=== PATIENT | male | born 1985 | race Caucasian/White ===

== ENCOUNTER 2020-02-18 09:30 | Outpatient (CLI) | payer BC, SELFPAY ==
[2020-02-21 18:55] LABS: COVID-19 RT-PCR Result NEGATIVE (Negative)
== END 2020-02-18 09:50 ==
PROVIDERS: PCP Nurse Practitioner Family; Visit Provider Nurse Practitioner Family
DX: Z11.59 Encounter for screening for other viral diseases (principal)
CPT/HCPCS: U0003

== ENCOUNTER 2020-02-24 08:38 | Outpatient (CLI) | payer BC, SELFPAY ==
[2020-02-25 19:43] LABS: COVID-19 RT-PCR UVMMC Result Positive (Negative)
== END 2020-02-24 08:58 ==
PROVIDERS: PCP Nurse Practitioner Family; Visit Provider Nurse Practitioner Family
DX: Z20.828 Contact with and (suspected) exposure to other viral communicable diseases (principal)
CPT/HCPCS: U0003

== ENCOUNTER 2022-04-05 03:16 | Outpatient (CLI) | payer BC, SELFPAY ==
[2022-04-05 11:14] LABS: Calculated LDL 173 mg/dL (<100); Cholesterol 275 mg/dL (<200); HDL Cholesterol 77 mg/dL (40-60); Triglyceride 126 mg/dL (<150)
[2022-04-05 11:26] LABS: Hemoglobin A1C 5.2 % (<5.7)
== END 2022-04-05 03:17 | disposition home or self-care (01) ==
LOC: LBO 03:16
PROVIDERS: PCP Nurse Practitioner Family; Visit Provider Nurse Practitioner Family
DX: Z13.1 Encounter for screening for diabetes mellitus (principal); Z13.220 Encounter for screening for lipoid disorders
CPT/HCPCS: 36415; 80061; 83036

== ENCOUNTER → 2023-01-17 00:42 | Outpatient (CLI) | payer BC, SELFPAY ==
--- NOTE | 2023-01-17 07:00 | DI.US_ITS ---
Exam(s) US HERNIA EXAM: US HERNIA CLINICAL HISTORY: intermittent RLQ abd pain, possible hernia. TECHNIQUE: Ultrasound was performed using standard protocol over area of concern in the right lower quadrant.. COMPARISON: US ABDOMEN ULTRASOUND (P) from 11/05/2015 FINDINGS: Dedicated ultrasound examination of the superficial area of concern in the right lower quadrant, look ing for abdominal wall defect-hernia. Images without and with Valsalva maneuver were obtained Submitted images do not reveal an abdominal wall defect/hernia in the area of clinical concern. IMPRESSION: No evidence of abdominal wall defect to suggest abdominal wall hernia in the area scanned. In additio n, there is no abnormal muscular nor intermuscular mass nor fluid collection in the abdominal wall at this level. DATA REPOSITORY:
--- NOTE | 2023-01-17 07:00 | DI.RAD_ITS ---
Exam(s) XR LUMBAR SPINE COMPLETE EXAM: XR LUMBAR SPINE COMPLETE CLINICAL HISTORY: intermittent right low back pain,M54.50. TECHNIQUE: 2D digital imaging was performed. COMPARISON: No exams were available for comparison FINDINGS: Five views There is no evidence of fracture, listhesis, nor pars defects. There is moderate-advanced disc space narrowing at L5-S1 level. All the other disc spaces exhibit no rmal height. Facet joints at each level appear unremarkable including L5-S1. Bone density appears n ormal. No osseous lesions. No scoliosis. SI joints appear unremarkable. IMPRESSION: Moderate disc space narrowing at L5-S1 level. If clinically indicated further study with MRI can be performed to determine if there is herniated disc material at this or other levels. DATA REPOSITORY: RADIATION DOSE DELIVERED:
== END ==
PROVIDERS: PCP Nurse Practitioner Family; Visit Provider Nurse Practitioner Family
DX: M51.36 Other intervertebral disc degeneration, lumbar region (principal)
CPT/HCPCS: 76857; 72110

== ENCOUNTER → 2023-02-17 00:50 | Outpatient (CLI) | payer BC, SELFPAY ==
--- NOTE | 2023-02-17 06:30 | DI.MRI_ITS ---
Exam(s) MR LUMBAR SPINE WO EXAM: MR LUMBAR SPINE WO CLINICAL HISTORY: acute rt LOW back pain,m54.50. TECHNIQUE: Multiplanar multisequence MRI of the Lumbar spine was performed. COMPARISON: CR XR LUMBAR SPINE COMPLETE from 01/17/2023 FINDINGS: Conus medullaris is at normal level. There is no evidence of conus mass nor subjacent clumping of in trathecal nerve roots to suggest arachnoiditis. The distal thecal sac appears unremarkable.There is no evidence of Tarlov intrasacral cysts nor other significant findings within the sacral canal. No e vidence of tethered spinal cord. However, there is syringomyelia noted in the distal spinal cord seen within field of view of this michael dy at and below T11 level to this most probably continues above this level. Bones:No fractures. There are Modic type 2 sub endplate fatty marrow changes at L5-S1 level. There is also a small benign-appearing bone lesion the posterior aspect of L2 vertebral body which may be a small hemangioma. This does not have the appearance of an aggressive bone lesion. With respect to the individual levels... T12-L1: Unremarkable L1-2: Normal disc height and signal. No disc herniation nor central canal stenosis.No foraminal steno sis L2-3: Normal disc height. No disc herniation nor central canal stenosis.No foraminal stenosis.No face t arthropathy. L3-4: Normal disc height. No disc herniation or central canal stenosis.No foraminal stenosis.No face t arthropathy. L4-5: Normal disc height and signal. However, there is a radial tear in the left side of the annulus within the exiting left neural foramen. However, there is no significant disc herniation at this le derrick at this time. Central canal dimensions are normal. There is no foraminal stenosis on either winston e at this level. No facet arthropathy. L5-S1: This level exhibits chronic disc space narrowing, anterior osseous lipping, and Modic type 2 s ub endplate fatty marrow changes. There is posterior annular bulging with a superimposed more promin ent bulging posterolateral left as well as some posterior bony ridging. This contacts the anterior l eft side of the thecal sac. There is no prominent focal disc protrusion at this level. Central nathan l dimensions are lower normal. There is minimal foraminal stenosis bilaterally at this level which i s related to the disc height loss. There is no prominent foraminal stenosis. The exiting nerve root s retain normal round configuration with surrounding fat signal and do not appear significantly compr essed. Soft tissues: paraspinal soft tissues appear unremarkable. IMPRESSION: 1. Firstly, there is syringomyelia evident in the visualized lower aspect of the spinal cord with di latation of the central canal to diameter 1.5 mm. This study extends up to T11 level and this dilata tion of the central canal is seen from the conus medullaris to this level and most probably continues above this level and therefore MRI scan of the thoracic and cervical spinal levels are recommended. 2. Chronic disc space narrowing evident at L5-S level with asymmetric posterolateral left annular bul ging which contacts the thecal sac. Central canal dimensions are lower normal. No significant saige inal stenosis. 3. Left-sided radial annular tear at L4-5 at the level of the exiting left neural foramen. However, there is no disc protrusion at this level evident nor elsewhere at this level.. No central canal lani nosis nor foraminal stenosis at this level. DATA REPOSITORY:
== END ==
PROVIDERS: PCP Nurse Practitioner Family; Visit Provider Nurse Practitioner Family
DX: M51.36 Other intervertebral disc degeneration, lumbar region (principal); G95.0 Syringomyelia and syringobulbia
CPT/HCPCS: 72148

== ENCOUNTER → 2023-04-05 01:09 | Outpatient (CLI) | payer BC, SELFPAY ==
--- NOTE | 2023-04-05 07:30 | DI.MRI_ITS ---
Exam(s) MR THORACIC SPINE WO EXAM: MR THORACIC SPINE WO CLINICAL HISTORY: syringomyelia,g95.0. TECHNIQUE: Multiplanar multisequence MRI of the Thoracic spine was performed. COMPARISON: MR MR LUMBAR SPINE WO from 02/17/2023 MR MR CERVICAL SPINE WO from 04/05/2023 FINDINGS: Bones: The vertebral body heights are well maintained. Minimal endplate osteophytes. Alignment is satisfactory. The marrow signal characteristics are unremarkable. Cord: The thoracic cord is normal size and signal intensity. A thin syrinx becomes visible at the T4 level extending down to the L1 level. The diameter is greatest at the T12 level where it measures 1 .5 millimeters in diameter. Soft tissues: Normal. Discs: No evidence of disc herniation or significant disc bulging. No neural foraminal narrowing or central canal stenosis. IMPRESSION: Thin syrinx, maximally 1.5 millimeters in diameter, extending from T4 through T12. Cord signal is ot herwise normal. No evidence of mass. DATA REPOSITORY:
--- NOTE | 2023-04-05 07:30 | DI.MRI_ITS ---
Exam(s) MR CERVICAL SPINE WO EXAM: MR CERVICAL SPINE WO CLINICAL HISTORY: syringomyelia,g95.0 TECHNIQUE: Multiplanar multisequence MRI of the cervical spine was performed without intravenous con trast. COMPARISON: No exams were available for comparison FINDINGS: BONES: Vertebral body heights are maintained. Alignment is normal. Bone marrow signal intensity is wi thin normal limits. CERVICAL CORD: Craniovertebral junction is unremarkable. Ovoid syrinx seen at the C6-7 level measurin g 2.6 cm in length by 3.5 millimeters in with by 2.5 millimeters AP. The cord signal is otherwise no rmal. The cord is normal in thickness.. SOFT TISSUES: Unremarkable. Discs: No evidence of disc herniation. No significant disc bulging. Discs are heights are maintaine d. No neural foraminal narrowing or central canal stenosis at any level. IMPRESSION: Small syrinx at the C6-7 level. DATA REPOSITORY:
== END ==
PROVIDERS: PCP Nurse Practitioner Family; Visit Provider Nurse Practitioner Family
DX: G95.0 Syringomyelia and syringobulbia (principal)
CPT/HCPCS: 72141; 72146